=== PATIENT | male | born 1995 | race Caucasian/White ===

== ENCOUNTER → 2023-01-28 16:10 | Outpatient (REF) | payer BC, SELFPAY | LOC: DHCBS MAIN 16:10 | PROVIDERS: ATTENDING PHYSICIAN Internal Medicine Cardiovascular Disease; FAMILY PHYSICIAN Internal Medicine | DX: R00.2 Palpitations (principal) | CPT/HCPCS: 93306 ==

== ENCOUNTER 2025-05-06 16:57 | Emergency (ER) | payer OTHER, SELFPAY ==
[2025-05-06 17:00] VITALS: BP 129/94
[2025-05-06 17:04] LABS: Glucose - Point of Care 325 mg/dl (70-99)
[2025-05-06 17:30] LABS: Urine Character Clear (Clear)
[2025-05-06 17:33] LABS: Hematocrit 44.0 % (39.0-52.0); Hemoglobin 15.5 g/dL (13.0-18.0); Mean Corp Hgb Conc. 35.2 g/dL (33.0-37.0); Mean Corpuscular Volume 80.3 fL (80.0-94.0); Nucleated Red Blood Cells % 0 % (-); Red Cell Dist. Width 12.4 % (11.5-14.5)
[2025-05-06 17:45] LABS: COVID-19 Antigen Negative (Negative)
[2025-05-06 17:53] LABS: Blood Urea Nitrogen 17 mg/dl (9-20); Calcium 9.4 mg/dl (8.4-10.2); Carbon Dioxide 24 mmol/L (22-30); Chloride 97 mmol/L (98-107); Glucose 276 mg/dl (70-99); Sodium 130 mmol/L (135-145); eGFR > 60.00
[2025-05-06 19:14] LABS: Glucose - Point of Care 122 mg/dl (70-99)
--- NOTE | 2025-05-06 20:43 | ED.GENMED ---
History of Present Illness
<Mp Emerson DO, Resident - Last Filed: 05/07/25 00:45>
General
Chief Complaint: Blood Sugar Problem
Source: patient
Exam Limitations: none
Time Seen by Provider: 05/06/25 20:06
Nursing documentation reviewed up to this point in time: agreed with
History of Present Illness
History of Present Illness:
Michael Wood is a 30 year old male with a PMHx of IDDM who is presenting due to High blood sugars X 18 hours. Patient has never had DKA in the past. Patient states that episode started last night when his CGM showed blood sugars in the 250-260
range despite the fact that he is on insulin pump. He continue to watch his sugars overnight. This morning, patient stated that he felt worse. He notes having fevers with a Tmax of 101.4. This morning, blood sugars were closer to 400. He
endorses using ketone strips which showed moderate to large ketones. Patient endorses a possible precipitating infection. States that he has had sinus congestion, sinus pain, and subacute productive cough for approximately 3 weeks. He denies
recent alcohol use. Patient's recent episodes are associated with nausea without vomiting, abdominal pain (described as gas pains), dry mouth. Patient and girlfriend deny that he has a fruity odor on his breath, and patient denies polyuria
although he states that he was thirsty during these episodes. During the interview, patient notes that his sugars have been decreasing, and most recent was around 68. He also notes the ketone urine strips have shown trace amount since last check.
Past History
<Mp Emerson DO, Resident - Last Filed: 05/07/25 00:45>
Past History
ED Past Medical History: IDDM and Other (Celiac disease, Asperger's)
ED Past Surgical History: None
Social History
Tobacco: Former smoker
Review of Systems
<Mp Emerson DO, Resident - Last Filed: 05/07/25 00:45>
Review of Systems
Allergies reviewed?: Yes
All Other Systems: ROS reviewed and negative except as documented in HPI and ROS
Phy Exam
<Mp Emerson DO, Resident - Last Filed: 05/07/25 00:45>
Physical Exam
Physical Exam:
General: Well-developed, well-nourished male in no acute distress
HEENT: Patient sounds congested. No sinus tenderness to palpation. Mucous membranes neither dry nor moist.
Respiratory: Clear to auscultation bilaterally, no wheezing, rales, rhonchi
CV: Regular rate and rhythm, no murmurs, rubs or gallops
abdomen: Soft, nontender to palpation in all 4 quadrants, nondistended, Cuello sign negative
neuro: Alert, oriented, awake, conversant
Course
<Mp Emerson DO, Resident - Last Filed: 05/07/25 00:45>
Orders/Labs/Results
Orders:
Orders
05/06/25 17:18
Basic Metabolic Panel Urgent
COVID-19 Antigen Urgent
Source: Nasal Swab
Complete Blood Count/With Diff Urgent
Urinalysis Reflex To Culture Urgent
Date Specimen was Collected: 05/06/25
Time Specimen was Collected: 17:06
Influenza A+B Rapid Molecular Urgent
DEMETRICE Source: Nasal Swab
Specimen Description:
05/06/25 19:07
ECG [Electrocardiogram (*1)] Urgent
Reason for Study: Chest Pain
Cardiology Consult: Unknown
EKG- Treatment ONCE
05/06/25 20:56
CR Chest - 2 Views Urgent
Comment:
Reason For Exam: Cough
Abnormal Lab Results
05/06/25 05/06/25 05/06/25
17:02 17:18 19:12
Absolute Neuts (auto) 7.6 H 10^3/uL
(1.4-6.5)
Absolute Lymphs (auto) 1.1 L 10^3/uL
(1.2-3.4)
Neutrophils % 80.7 H %
(42.2-75.2)
Lymphocytes % 11.3 L %
(20.5-51.1)
Sodium 130 L mmol/L
(135-145)
Chloride 97 L mmol/L
(98-107)
Glucose 276 H mg/dl
(70-99)
Urine Glucose 4+ A
(Negative)
POC Glucose 325 H mg/dl 122 H mg/dl
(70-99) (70-99)
05/06/25 17:18
05/06/25 17:18
Vital Signs
Initial and Last Documented VS:
Initial Vital Signs
Temp Pulse Resp BP Pulse Ox
98.9 F 105 20 129/94 96
05/06/25 17:00 05/06/25 17:00 05/06/25 17:00 05/06/25 17:00 05/06/25 17:00
Last Documented Vital Signs
Temp Pulse Resp BP Pulse Ox
98.9 F 105 20 129/94 96
05/06/25 17:00 05/06/25 17:00 05/06/25 17:00 05/06/25 17:00 05/06/25 20:48
<Costa Patel MD - Last Filed: 05/07/25 00:46>
Orders/Labs/Results
Orders:
Orders
05/06/25 17:18
Basic Metabolic Panel Urgent
COVID-19 Antigen Urgent
Source: Nasal Swab
Complete Blood Count/With Diff Urgent
Urinalysis Reflex To Culture Urgent
Date Specimen was Collected: 05/06/25
Time Specimen was Collected: 17:06
Influenza A+B Rapid Molecular Urgent
DEMETRICE Source: Nasal Swab
Specimen Description:
05/06/25 19:07
ECG [Electrocardiogram (*1)] Urgent
Reason for Study: Chest Pain
Cardiology Consult: Unknown
EKG- Treatment ONCE
05/06/25 20:56
CR Chest - 2 Views Urgent
Comment:
Reason For Exam: Cough
Abnormal Lab Results
05/06/25 05/06/25 05/06/25
17:02 17:18 19:12
Absolute Neuts (auto) 7.6 H 10^3/uL
(1.4-6.5)
Absolute Lymphs (auto) 1.1 L 10^3/uL
(1.2-3.4)
Neutrophils % 80.7 H %
(42.2-75.2)
Lymphocytes % 11.3 L %
(20.5-51.1)
Sodium 130 L mmol/L
(135-145)
Chloride 97 L mmol/L
(98-107)
Glucose 276 H mg/dl
(70-99)
Urine Glucose 4+ A
(Negative)
POC Glucose 325 H mg/dl 122 H mg/dl
(70-99) (70-99)
05/06/25 17:18
05/06/25 17:18
Vital Signs
Initial and Last Documented VS:
Initial Vital Signs
Temp Pulse Resp BP Pulse Ox
98.9 F 105 20 129/94 96
05/06/25 17:00 05/06/25 17:00 05/06/25 17:00 05/06/25 17:00 05/06/25 17:00
Last Documented Vital Signs
Temp Pulse Resp BP Pulse Ox
98.9 F 105 20 129/94 96
05/06/25 17:00 05/06/25 17:00 05/06/25 17:00 05/06/25 17:00 05/06/25 20:48
<Mp Emerson DO, Resident - Last Filed: 05/07/25 00:45>
MDM/Problems Addressed
Differential Diagnosis Includes:
DKA, HHS, Other Hyperglycemia, Subacute Sinusitis, Pneumonia, Viral URI
MDM/Problems Addressed:
30 year old male who presented with high blood sugar readings for 18 hours and fevers since this morning. Blood sugars were initially in 250-260 range and went as high as 400 today, despite adequately working insulin pump. Patient was using urine
ktone test strips which showed positive readings. Associated with nausea and mild abdominal pain with dry mouth, symptoms of which have mostly resolved since onset. Precipitating factors were discussed and the patient has not drank alcohol in a
number of weeks. Noncompliance is not at issue as patient has insulin pump, and it appears it is adquately working since sugars have now corrected. Patient endorsing sinus symptoms and subacte cough for 3 weeks. Ketones negative here in ED, and
sugars have normalized. No anion gap, bicarb normal. Vitals otherwise stable. It is possible patient became hyperglycemic in response to stress from an infection. COVID and FLU negative. Will check a CXR for pnuemonia. In either case with subacute
sinus symptoms, will send patient home on 10 days of Ceftin in the setting of lingering infectious symptoms for 3 weeks and risk of hyperglycemia.
<Mp Emerson DO, Resident - Last Filed: 05/07/25 00:45>
*Pulse Oximetry
SaO2: 96
Oxygen Mode of Delivery: Room air
Patient hypoxic: no
*Critical Care Note
Total Time (30-74mins, 75-104mins- exclusive of procedures): Not Applicable
ED Attending Note
<Mp Emerson DO, Resident - Last Filed: 05/07/25 00:45>
-
Portions of this chart may have been created with voice recognition software.� Occasional wrong word or��sound alike� substitutions may have occurred due to the inherent limitations of voice recognition software.
<Costa Patel MD - Last Filed: 05/07/25 00:46>
ED Attending Note
Patient seen and examined by attending physician: Yes
I performed a history and physical exam of patient and discussed management with resident, I reviewed resident's note and agree with documented findings and plan of care.: Yes
ED Attending Note:
30-year-old male history of diabetes. Usually self controlled. Has had nasal congestion cough for the last few weeks. Fever the last 24 to 48 hours. Blood sugars elevated up to 400 today with ketones in his urine. No chest pain shortness of
breath unusual headache or other complaints.
On exam patient is nontoxic in no distress. Mild maxillary tenderness. Mild nasal congestion. Pharynx is clear. Neck is supple. Lungs are clear and equal. Heart regular rate and rhythm. Abdomen soft and nontender. His diabetic monitor is on
the right side of his abdominal wall. Site appears well.
Blood sugars are reasonable here. Bicarb is normal. Ketones are negative. Nothing to support DKA at this time. COVID-negative flu negative. Likely all viral syndrome. However, with congestion continuing 4 weeks reasonable to cover for
sinusitis. No indication for admission
Discharge Plan
Departure
Patient Disposition: Home (Routine Discharge)
Date of Disposition: 05/06/25
Time of Disposition: 21:39
Patient with high blood pressure during this ER visit?: No
Discharge Problem:
Hyperglycemia, Upper respiratory infection
Prescriptions:
New
cefuroxime axetil 250 mg tablet
250 mg PO BID 10 Days Qty: 20 0RF
No Action
L.acidoph,paracasei,B.animalis 1 EACH capsule
1 ea PO DAILY
Humalog Pump
psyllium husk [Metamucil Fiber (aspartame)] 1 PACKET powder in packet
1 packet PO DAILY Qty: 14 0RF
dicyclomine 10 MG capsule
10 mg PO QIDPRN PRN (Reason: abdominal pain) Qty: 20 0RF
Referrals:
Frank Gaitan MD [Family Provider, Internal Medicine]
Activity Restrictions/Additional Instructions:
Your labs did not show any evidence of diabetic ketoacidosis, though you were likely hyperglycemic due to stress on the body from an infection.
You have been prescribed a 10 day course of antibiotics. It is important that you complete the full course.
Should you continue to have elevated blood sugars, you should contact your primary care physician, pigment pumper, or visit the ED if you have severe dehydration, increased urination, fruity odor to your breath, or abdominal pain with nausea and
vomiting. These may be signs of diabetic ketoacidosis.
Interventions
Interventions:
*General Assessment Last Done: 05/06/25 17:00
*Neglect/Abuse Screening Last Done: 05/06/25 17:00
*ED COVID-19 Vaccine History Last Done: 05/06/25 21:27
*ED Influenza Vaccine History Last Done: 05/06/25 21:27
[facility] Risk Assessment Tool Last Done: 05/06/25 21:27
*Risk Screen - Suicide (C-SSRS) Last Done: 05/06/25 21:27
*Nursing Disposition Last Done: 05/06/25 21:49
ED- Neurological Assessment Last Done: 05/06/25 21:20
Discharge Date and Time
Discharge Date/Time: 05/06/25 21:49
Print Language: YI
== END 2025-05-06 21:49 | disposition home or self-care (01) ==
LOC: EMR 16:57
PROVIDERS: Emergency Medicine; EMERGENCY PHYSICIAN Emergency Medicine; FAMILY PHYSICIAN Internal Medicine
DX: J06.9 Acute upper respiratory infection, unspecified (principal); E11.65 Type 2 diabetes mellitus with hyperglycemia; Z96.41 Presence of insulin pump (external) (internal); Z79.4 Long term (current) use of insulin; Z87.891 Personal history of nicotine dependence; Z11.52 Encounter for screening for COVID-19
CPT/HCPCS: 99285; 71046; 80048; 81003; 82962; 85025; 87502; 87811; 93005